=== PATIENT | male | born 1990 | race African-American/Black ===

== ENCOUNTER 2021-05-08 15:10 | Emergency (ER) | payer OTHER ==
[~2021-05-08] VITALS: Ht 177.8 cm; Wt 118.8 kg
[2021-05-08 15:13] VITALS: BP 137/75
--- NOTE | 2021-05-08 16:28 | NUR ---
case monitor note: Pt to room from lobby.
[2021-05-08] MEDS ORDERED: ACETAMINOPHEN 500 MG TABLET PO ONE (17:00)
[2021-05-08] MEDS ORDERED: KETOROLAC 30 MG/1 ML IM ONE (17:00)
[2021-05-08] MEDS ORDERED: ACETAMINOPHEN 500 MG TABLET ONE (17:04)
[2021-05-08] MEDS ORDERED: KETOROLAC 60 MG/2 ML ONE (17:04)
== END 2021-05-08 17:45 | disposition home or self-care (01) ==
LOC: ED 17:30
DX: U07.1 COVID-19 (principal); R51.9 Headache, unspecified; F17.200 Nicotine dependence, unspecified, uncomplicated; R06.02 Shortness of breath
CPT/HCPCS: 71045; 96372; 99284; J1885; U0003; U0005